=== PATIENT | male | born 1975 | race Caucasian/White ===

== ENCOUNTER 2023-02-19 15:12 | Outpatient (CLI) | payer MEDICARE, MEDICAID, SELFPAY ==
[2023-02-19 18:16] LABS: Free T4 Free Thyroxine 1.29 ng/mL (0.78-2.19)
[2023-02-19 18:37] LABS: LDL Cholesterol Direct 80 mg/dL
[2023-02-19 18:56] LABS: Thyroid Stimulating Hormone < 0.015 uIU/mL (0.465-4.680)
[2023-02-19 23:37] LABS: Anion Gap 3 mmol/L (8-16); Blood Urea Nitrogen 12 mg/dL (9-20); Calcium 8.4 mg/dL (8.4-10.2); Carbon Dioxide 33 mmol/L (22-30); Chloride 104 mmol/L (98-107); Estimated Glomerular Filt Rate > 60; HDL Direct 33 mg/dL; Potassium 4.3 mmol/L (3.4-5.0); Sodium 140 mmol/L (137-145)
[2023-02-20 11:46] LABS: Glucose 49 mg/dL (65-110)
== END 2023-02-19 15:13 | disposition home or self-care (01) ==
LOC: ANHWCLAB 15:14
PROVIDERS: PCP Family Medicine; Visit Provider Internal Medicine Endocrinology, Diabetes & Metabolism
DX: E03.9 Hypothyroidism, unspecified (principal); E10.65 Type 1 diabetes mellitus with hyperglycemia; E78.5 Hyperlipidemia, unspecified
CPT/HCPCS: 36415; 80048; 83718; 83721; 84439; 84443